=== PATIENT | female | born 1945 | race Caucasian/White ===

== ENCOUNTER 2021-11-20 17:09 | Emergency (ER) | payer MEDICARE ==
[~2021-11-20] VITALS: Ht 160 cm; Wt 52.2 kg
[~2021-11-20 17:09] MED LIST: ALBU90OI INH; ALEN70; AZIT250 PO; CYCL10 PO; DIAZ5 PO; FISH1000 PO; Garlic1 EACH PO; HYDACE5 PO; HYDACE5325 PO; MULVITMIND PO; NAPR550 PO; NIAC500 PO; OXYACE5T PO; RXHYD5325 PO; RXNAPNA550 PO; TAMS.4ER PO; TRAM50 PO
[2021-11-20 17:31] LABS: Hematocrit 41.3 % (33.0-51.0); Mean Corpuscular HGB 31.3 pg (26.0-34.0); Mean Corpuscular HGB Conc 33.9 g/dL (31.5-36.5); Mean Corpuscular Volume 92 fL (80-100); Platelet Count 277 K/mm3 (150-400); RDW Coefficient Variation 14.7 % (11.7-14.2); RDW Standard Deviation 50.2 fL (35.1-46.3); Red Blood Cell Count 4.48 M/mm3 (3.80-5.20)
[2021-11-20 17:47] LABS: White Blood Cell Count 11.74 K/mm3 (4.00-11.30)
[2021-11-20 17:52] LABS: Albumin, Blood 3.4 g/dL (3.4-5.0); Albumin/Globulin Ratio 0.9 (0.8-1.8); Bilirubin, Total 0.2 mg/dL (0.1-1.0); Bun/Creatinine Ratio 16.8 (12.0-20.0); Creatinine, Blood 0.83 mg/dL (0.40-1.00); Globulin, Blood 3.9 g/dL (2.2-4.0); Potassium, Blood 4.6 mmol/L (3.5-5.5); Total Protein, Blood 7.3 g/dL (6.4-8.2)
[2021-11-20 18:03] LABS: BASOPHILS ABSOLUTE MAN 0.11 K/mm3 (0.00-0.23); BASOPHILS PERCENT MAN 1 % (0-2); EOSINOPHILS ABSOLUTE MAN 0.11 K/mm3 (0.00-0.68); EOSINOPHILS PERCENT MAN 1 % (0-6); LYMPHOCYTES ABSOLUTE MAN 2.58 K/mm3 (0.84-5.20); LYMPHOCYTES PERCENT MAN 22 % (21-46); MONOCYTES ABSOLUTE MAN 0.82 K/mm3 (0.16-1.47); MONOCYTES PERCENT MAN 7 % (4-13); SEG NEUTROPHILS PERCENT MAN 69 % (41-73); TOTAL CELLS COUNTED 100
== END 2021-11-20 19:08 | disposition left against medical advice (07) ==
LOC: ER 17:09
PROVIDERS: Emergency Medicine
DX: Z53.21 Procedure and treatment not carried out due to patient leaving prior to being seen by health care provider (principal)
CPT/HCPCS: 80053; 83690; 85025